=== PATIENT | female | born 1965 | race Caucasian/White ===

== ENCOUNTER 2017-03-20 13:37 | Emergency (ER) | payer OTHER, SELFPAY ==
[2017-03-20 13:53] VITALS: BP 115/67; PULSE 74; RESP 16; TEMP 99.4; O2SAT 99
[2017-03-20] MEDS ORDERED: Albuterol-Ipratrop 3 mg / 0.5 (3 ml) UD INH STA (14:04)
--- NOTE | 2017-03-20 14:06 | ED PDOC ---
HPI: General Adult Time Seen by Provider: 03/20/17 14:00 Chief Complaint (Nursing): Flu-like Symptoms Chief Complaint (Provider): Flu-like Symptoms History Per: Patient History/Exam Limitations: no limitations Onset/Duration Of Symptoms: Days (x3 days) Current Symptoms Are (Timing): Still Present Additional Complaint(s): 51 y/o male presents to the ED complaining of fever, cough , nasal congestion and sore throat since 03/18/2017. Patient notes taking Tylenol without relief. Denies any further medical complaints. Past Medical History Reviewed: Historical Data, Nursing Documentation, Vital Signs Vital Signs: Last Vital Signs Temp 99.4 F 03/20/17 13:49 Pulse 74 03/20/17 13:49 Resp 16 03/20/17 13:49 BP 115/67 03/20/17 13:49 Pulse Ox 99 03/20/17 15:21 - Family History Family History: States: Unknown Family Hx - Social History Current smoker - smoking cessation education provided: No Alcohol: None Drugs: Denies - Home Medications Home Medications: Ambulatory Orders Medication Instructions Recorded Docusate [Colace] 100 mg PO BID #20 cap 03/05/16 Hydrocortisone 2.5% (Rectal) 30 applic PA BID #10 tube 03/05/16 [Anusol-HC] Acetaminophen [Acetaminophen Extra 2 tab PO Q6 PRN #24 tablet 03/20/17 Strength] Albuterol HFA [Ventolin HFA 90 2 puff IH [id number] PRN #1 inhaler 03/20/17 mcg/actuation (8 g)] Ibuprofen [Motrin] 600 mg PO Q8 PRN #21 tab 03/20/17 Oseltamivir [Tamiflu] 75 mg PO BID #9 cap 03/20/17 Promethazine/Codeine 5 ml PO DAILY PRN #100 ml 03/20/17 [Codeine/Promethazine 10 MG/5 Ml-6.25 MG/5 Ml] - Allergies Allergies/Adverse Reactions: Allergies Allergy/AdvReac Type Severity Reaction Status Date / Time No Known Allergies Allergy Verified 03/20/17 13:49 Review of Systems ROS Statement: Except As Marked, All Systems Reviewed And Found Negative (As per HPI, otherwise negative) Constitutional: Positive for: Fever ENT: Positive for: Nose Congestion, Throat Pain (Sore throat) Respiratory: Positive for: Cough Physical Exam - Reviewed Nursing Documentation Reviewed: Yes Vital Signs Reviewed: Yes - Physical Exam Appears: Positive for: Well, Non-toxic, No Acute Distress Head Exam: Positive for: ATRAUMATIC, NORMAL INSPECTION, NORMOCEPHALIC Skin: Positive for: Normal Color, Warm, Dry Eye Exam: Positive for: Normal appearance ENT: Positive for: Nasal Congestion. Negative for: Pharyngeal Erythema, Tonsillar Exudate Neck: Positive for: Normal, Painless ROM, Supple Cardiovascular/Chest: Positive for: Regular Rate, Rhythm. Negative for: Murmur Respiratory: Positive for: Wheezing (mild wheezing noted in the upper lobe) Gastrointestinal/Abdominal: Positive for: Normal Exam Back: Positive for: Normal Inspection Extremity: Positive for: Normal ROM. Negative for: Deformity Neurologic/Psych: Positive for: Alert, Oriented (x3) - ECG O2 Sat by Pulse Oximetry: 99 (RA) Pulse Ox Interpretation: Normal - Progress ED Course And Treament: DUONEB X 1 DOSE FLU B POS TAMIFLU 75 MG X 1 DOSE Medical Decision Making Medical Decision Making: Time: 14:04 Plan: Albuterol 3ml INH Peak flow pre/post tx Influenza A B Time: 15:08 Upon provider reevaluation patient is feeling better, is medically stable, and requires no further treatment in the ED at this time. Patient will be discharged home with Rx for Albuterol HFA 2 puff IH, Acetaminophen 2 tab PO, Oseltamivir 75mg PO, Promethazine 10MG/5 NC- 6.25MG/5 NC. Counseling was provided and all questions were answered regarding diagnosis and has been referred to [facility] [place]. There is agreement to discharge plan. Return if symptoms persist or worsen. Clinical Impression: Influenza Scribe Attestation: Documented by Luz Deleon acting as a scribe for PA. MD Margarita Doran Attestation: All medical record entries made by the Scribe were at my direction and personally dictated by me. I have reviewed the chart and agree that the record accurately reflects my personal performance of the history, physical exam, medical decision making, and the department course for this patient. I have also personally directed, reviewed, and agree with the discharge instructions and disposition. Disposition - Clinical Impression Clinical Impression: Influenza - Patient ED Disposition Is Patient to be Admitted: No - Disposition Referrals: [facility] [Outside] Disposition: Routine/Home Disposition Time: 15:08 Condition: FAIR Prescriptions: Albuterol HFA [Ventolin HFA 90 mcg/actuation (8 g)] 2 puff IH [id number] PRN #1 inhaler PRN Reason: Cough Acetaminophen [Acetaminophen Extra Strength] 2 tab PO Q6 PRN #24 tablet PRN Reason: Fever >100.4 F Ibuprofen [Motrin] 600 mg PO Q8 PRN #21 tab PRN Reason: Fever >100.4 F Oseltamivir [Tamiflu] 75 mg PO BID #9 cap Promethazine/Codeine [Codeine/Promethazine 10 MG/5 Ml-6.25 MG/5 Ml] 5 ml PO DAILY PRN #100 ml PRN Reason: Cough Instructions: Influenza (ED) Forms: [email or web address] (Greek), [facility] ED School/Work Excuse Print Language: [place]
[2017-03-20] MEDS ORDERED: Albuterol-Ipratrop 3 mg / 0.5 (3 ml) UD ONE (14:13)
== END 2017-03-20 15:21 | disposition home or self-care (01) ==
LOC: H.ER 13:37
DX: J11.1 Influenza due to unidentified influenza virus with other respiratory manifestations (principal)

== ENCOUNTER 2017-12-13 07:09 | Emergency (ER) | payer SELFPAY ==
[2017-12-13 07:18] VITALS: BP 127/82; PULSE 69; RESP 18; TEMP 98.4; O2SAT 100
[2017-12-13 07:19] VITALS: BMI 22.4
--- NOTE | 2017-12-13 08:16 | ED PDOC ---
Upper Extremity Pain/Injury Time Seen by Provider: 12/13/17 07:18 Chief Complaint (Nursing): Pain, Chronic Chief Complaint (Provider): neck pain History Per: Patient History/Exam Limitations: no limitations Onset/Duration Of Symptoms: Persistent Current Symptoms Are (Timing): Still Present Additional Complaint(s): 52 year old female arrives to ED with a complaint of persistent right-sided neck pain radiating to her shoulder. Patient had a neck MRI on 12/07/17 for similar symptoms which revealed C3-C4 herniation. She reports pain is worse with head movements but denies any weakness or paresthesia. PMD: none provided Past Medical History Reviewed: Historical Data, Nursing Documentation, Vital Signs Vital Signs: Last Vital Signs Temp 98.4 F 12/13/17 07:18 Pulse 69 12/13/17 07:18 Resp 18 12/13/17 07:18 BP 127/82 12/13/17 07:18 Pulse Ox 100 12/13/17 07:18 - Medical History PMH: Chronic Pain (cervical disc herniation) Denies: Chronic Kidney Disease - Family History Family History: States: Unknown Family Hx - Home Medications Home Medications: Ambulatory Orders Medication Instructions Recorded Docusate [Colace] 100 mg PO BID #20 cap 03/05/16 Hydrocortisone 2.5% (Rectal) 30 applic AL BID #10 tube 03/05/16 [Anusol-HC] Acetaminophen [Acetaminophen Extra 2 tab PO Q6 PRN #24 tablet 03/20/17 Strength] Ibuprofen [Motrin] 600 mg PO Q8 PRN #21 tab 03/20/17 Oseltamivir [Tamiflu] 75 mg PO BID #9 cap 03/20/17 Promethazine/Codeine 5 ml PO DAILY PRN #100 ml 03/20/17 [Codeine/Promethazine 10 MG/5 Ml-6.25 MG/5 Ml] RX: Albuterol HFA [Ventolin HFA 90 2 puff IH [id number] PRN #1 inhaler 03/20/17 mcg/actuation (8 g)] Cyclobenzaprine [Cyclobenzaprine 10 mg PO TID #10 tab 12/13/17 HCl] Methylprednisolone [Medrol Dose 4 mg PO DAILY #21 tab 12/13/17 Pack (21 tabs)] - Allergies Allergies/Adverse Reactions: Allergies Allergy/AdvReac Type Severity Reaction Status Date / Time No Known Allergies Allergy Verified 03/20/17 13:49 Review of Systems ROS Statement: Except As Marked, All Systems Reviewed And Found Negative Musculoskeletal: Positive for: Neck Pain (right-sided), Shoulder Pain (right- sided) Neurological: Negative for: Weakness (or paresthesia) Physical Exam - Reviewed Nursing Documentation Reviewed: Yes Vital Signs Reviewed: Yes - Physical Exam Appears: Positive for: No Acute Distress Neck: Positive for: Pain On Movement Of Neck (side to side) Back: Positive for: Vertebral Tenderness (right-sided paraspinal), Muscle Spasm (right-sided paraspinal). Negative for: Other (posterior cervical tenderness) Extremity: Positive for: Normal ROM (upper/lower) Neurologic/Psych: Positive for: Alert, Oriented (x3). Negative for: Motor/Sensory Deficits - Laboratory Results Urine POC: Negative - ECG O2 Sat by Pulse Oximetry: 100 (RA) Pulse Ox Interpretation: Normal Medical Decision Making Medical Decision Making: Time: 0800 Initial Plan: * Flexeril 10mg PO * Toradol 30mg IM Scribe Attestation: Documented by Karina Kilpatrick, acting as a scribe for Darrell Pepe MD. Provider Scribe Attestation: All medical record entries made by the Scribe were at my direction and personally dictated by me. I have reviewed the chart and agree that the record accurately reflects my personal performance of the history, physical exam, medical decision making, and the department course for this patient. I have also personally directed, reviewed, and agree with the discharge instructions and disposition. Disposition - Clinical Impression Clinical Impression: Cervical disc disease - Disposition Referrals: [facility] [Outside] Disposition: Routine/Home Disposition Time: 08:00 Condition: FAIR Prescriptions: Cyclobenzaprine [Cyclobenzaprine HCl] 10 mg PO TID #10 tab Methylprednisolone [Medrol Dose Pack (21 tabs)] 4 mg PO DAILY #21 tab Instructions: Herniated Disc, Radiculopathy Forms: [employer] (Upper Sorbian), [facility] ED School/Work Excuse Print Language: ARMENIAN
== END 2017-12-13 08:49 | disposition home or self-care (01) ==
LOC: H.ER 07:09
DX: M50.90 Cervical disc disorder, unspecified, unspecified cervical region (principal); G89.29 Other chronic pain
CPT/HCPCS: 81025; 96372; 99285; J1885